=== PATIENT | female | born 1985 | race American Indian/Alaskan Native ===

== ENCOUNTER 2021-02-17 23:21 | Inpatient (IN) | payer BC, MEDICAID ==
[2021-02-17] MEDS ORDERED: LACTATED RINGERS 1,000 ML IV SCH (23:45)
[2021-02-17] MEDS ORDERED: OXYTOCIN DRIP 30 UNITS/500 ML BAG IV SCH (23:45)
[2021-02-17] MEDS ORDERED: OXYTOCIN DRIP 30,000 MILLIUNITS/500 ML BAG IV ONE (23:53)
[2021-02-17] MEDS ORDERED: LACTATED RINGERS 1,000 ML ONE (23:53)
[2021-02-17] MEDS ORDERED: ONDANSETRON 4 MG/2 ML INJ IV PRN (23:54)
[2021-02-17] MEDS ORDERED: CARBOPROST TROMETHAMINE 250 MCG/1 ML INJ IM PRN (23:54)
[2021-02-17] MEDS ORDERED: MINERAL OIL 30 ML ORAL LIQD PO PRN (23:54)
[2021-02-17] MEDS ORDERED: OXYTOCIN 10 UNIT/1 ML INJ IM PRN (23:54)
[2021-02-17] MEDS ORDERED: miSOPROStol 200 MCG TAB PR PRN (23:54)
[2021-02-17] MEDS ORDERED: NalbUPHINE 10 MG/1 ML INJ IV PRN (23:54)
[2021-02-17] MEDS ORDERED: LIDOCAINE (2%) 20 MG/1 ML VIAL 20 ML MDV INFILTRATI ONE (23:54)
[2021-02-17] MEDS ORDERED: TERBUTALINE 1 MG/1 ML INJ SUB-Q PRN (23:54)
[2021-02-17] MEDS ORDERED: ACETAMINOPHEN 325 MG TAB PO PRN (23:54)
[2021-02-17] MEDS ORDERED: LOPERAMIDE 2 MG CAP PO PRN (23:54)
[2021-02-17] MEDS ORDERED: ePHEDrine SULFATE 50 MG/1 ML INJ IV PRN (23:54)
[2021-02-17] MEDS ORDERED: METHYLERGONOVINE MALEATE 0.2 MG/ML VIAL IM PRN (23:54)
--- NOTE | 2021-02-17 23:57 | History and Physical Report ---
History of Present Illness Date of examination: 02/17/21 Chief complaint: abd pain since 1800 History of present illness: EDC Calculations by LMP: 05/27/2021 Past History : 3 Term Births: 1 Premature Births: 1 Living Children: 2 Para: 2 Mult. Births: 0 Prev : 1 Aborta: 0 Elect. Ab: 0 Spont. 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 of genital herpes: no Partner hx. of genital herpes: no Rash, Viral, or Febrile illness since last LMP? no Varicella/Chicken Pox Status: Previous Disease Genetic History ADVANCED MATERNAL AGE Congenital Heart Defect: Mom: no Dad: no Fannie Disease: Mom: no Dad: no Thalassemia Mom: no Dad: no Neural Tube Defect Mom: no Dad: no Down's Syndrome Mom: no Dad: no Jean Carlos-Sachs Mom: no Dad: no Sickle Cell Disease/Trait Mom: no Dad: no Hemophilia Mom: no Dad: no Muscular Dystrophy Mom: no Dad: no Cystic Fibrosis Mom: no Dad: no [place] Chorea Mom: no Dad: no Mental Retardation Mom: no Dad: no Fragile X Mom: no Dad: no Other Genetic/Chromosomal Disorder Mom: no Dad: no Child w/other defect Mom: no Dad: no Enviromental Exposures Xray Exposure: no Medication, drug, or alcohol use since LMP: no Chemical/Other Exposure: no Exposure to Cat Liter: no Hx of Parvovirus (Fifth Disease): no Occupational Exposure to Children: none Active Medications (reviewed today): None Current Allergies (reviewed today): No known allergies Past History Past Medical History: other (see HPI) Past Surgical History: other (see HPI) 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 (see HPI) Family/Genetic History: other (see HPI) - Obstetrical History Expected Date of Delivery: 05/27/21 Actual Gestation: 26 Week(s) 0 Day(s) : 3 Para: 2 Hx # Term Pregnancies: 1 Number of Pregnancies: 1 Spontaneous Abortions: 0 Induced : 0 Number of Living Children: 1 Medications and Allergies Allergies Allergy/AdvReac Type Severity Reaction Status Date / Time No Known Allergies Allergy Unverified 02/17/21 23:36 Review of Systems All systems: negative - Physical Exam Cardiovascular: Regular rate Lungs: Positive: Normal air movement Abdomen: Positive: normal appearance, soft Genitourinary (Female): Positive: normal external genitalia Vulva: both: normal Vagina: Positive: normal moisture (SROM - mec) Extremities: Positive: normal - Obstetrical Uterine Contraction Monitor Mode: External Cervical Dilatation: 10 (SROM MEC) Cervical Effacement Percentage: 100 station: +2 Results Result Diagrams: 02/18/21 00:00 All other labs normal. Assessment and Plan 35y/o presented with abd pain since 1800 today worsening around 2200. Pt drove self to hospital. Upon arrival - SROM MEC fluid. pt 10/100/+2. prev c/s. NICU notified, anticipate delivery. Dr. Parada consulted ad aware of pt's status. - Patient Problems (1) 26 weeks gestation of Current Visit: Yes Status: Acute (2) labor in second trimester with delivery in second trimester Current Visit: Yes Status: Acute Qualifiers: Fetus number: single or unspecified fetus Qualified Code(s): O60.12X0 - labor second trimester with delivery second trimester, not a pplicable or unspecified
--- NOTE | 2021-02-18 00:19 | Procedure Note ---
OB Delivery Note - Delivery Date of Delivery: 02/18/21 Ticket Collector: EZ ARGUETA Estimated blood loss: 200cc - Vaginal Delivery presentation: vertex Intrapartum events: labor-<37 weeks, meconium, abruption Delivery induction: none Delivery monitor: external FHT Route of delivery: Delivery placenta: spontaneous Delivery cord: 3 umbilical vessels Episiotomy: none Delivery laceration: none Anesthesia: none Delivery comments: pt arrived complete, once NICU was set up and IV established, pt pushed through 2 ctx. once was born, waited approx 45 seconds to clamp and cut cord as per NICU. Once cord stopped pulsating, cord clamped and cut, [facility]. Placenta delivered immediately with clots suggesting abruption. Pit in IVF. no lacerations to repair. fundus firm, lochia scant. All counts correct. - A Gender: Female
[2021-02-18 00:26] LABS: Hematocrit 35.7 % (30.3-42.9); Hemoglobin 11.9 gm/dl (10.1-14.3); Mean Corpuscular HGB Conc 33 % (30-34); Mean Corpuscular Volume 92 fl (79-97); Platelet Count 227 K/mm3 (140-440); Red Cell Distribution Width 14.7 % (13.2-15.2)
[2021-02-18] MEDS ORDERED: AMPICILLIN/NS 2 GM/100 ML 2 GM/100 ML BAG IV ONE (01:00)
[2021-02-18] MEDS ORDERED: WITCH HAZEL/ GLYCERIN PAD TP PRN (03:24)
[2021-02-18] MEDS ORDERED: PROMETHAZINE 25 MG TAB PO PRN (03:24)
[2021-02-18] MEDS ORDERED: diphenhydrAMINE 25 MG CAP PO PRN (03:24)
[2021-02-18] MEDS ORDERED: MAGNESIUM HYDROXIDE (MOM) ORAL LIQD UDC PO PRN (03:24)
[2021-02-18] MEDS ORDERED: LANOLIN/ZINC/DIMETHICONE (LANSINOH) 7 GM TP PRN (03:24)
[2021-02-18] MEDS: IBUPROFEN 800 MG TAB PO SCH ×3 (04:59→18:30)
--- NOTE | 2021-02-18 08:08 | Progress Note ---
Assessment and Plan Pt standing at bedside crying s/p phone call with NICU. Pt reports fears concerning . Pt comforted and counseling provided. POC and precautions discussed. All questions and concerns addressed. - Patient Problems (1) , delivered Current Visit: Yes Status: Acute Subjective - Subjective Date of service: 02/18/21 Principal diagnosis: PP, of infant Patient reports: appetite normal, voiding normally, pain well controlled, ambulating normally, no dizzy ambulation, no nauseated : in NICU Objective - Vital Signs Latest vital signs: Vital Signs Temp Pulse Resp BP Pulse Ox 02/18/21 07:46 98.0 F 79 18 109/72 100 02/18/21 05:53 18 02/18/21 04:59 18 02/18/21 03:09 98.5 F 90 18 126/77 99 02/18/21 02:33 83 L 02/18/21 02:32 75 81 L 02/18/21 02:28 80 91 02/18/21 02:25 85 96 02/18/21 02:20 86 97 02/18/21 02:18 82 123/74 02/18/21 02:15 89 98 02/18/21 02:10 81 97 02/18/21 02:05 86 96 02/18/21 02:03 85 121/69 02/18/21 02:00 85 96 02/18/21 01:55 89 97 02/18/21 01:50 87 97 02/18/21 01:48 89 120/68 02/18/21 01:45 87 98 02/18/21 01:40 89 97 02/18/21 01:35 96 H 98 02/18/21 01:33 86 132/68 02/18/21 01:30 92 H 97 02/18/21 01:25 93 H 97 02/18/21 01:20 93 H 97 02/18/21 01:18 92 H 139/68 94 02/18/21 01:15 95 H 97 02/18/21 01:10 94 H 97 02/18/21 01:05 94 H 97 02/18/21 01:03 92 H 115/79 94 02/18/21 01:00 92 H 98 02/18/21 00:55 94 H 98 02/18/21 00:50 97 H 96 02/18/21 00:45 95 H 98 02/18/21 00:40 105 H 96 02/18/21 00:38 93 H 94 02/18/21 00:37 98.1 F 18 02/18/21 00:35 97 H 97 02/18/21 00:33 93 H 125/72 02/18/21 00:30 97 H 98 02/18/21 00:25 108 H 97 02/18/21 00:21 104 H 131/76 02/18/21 00:20 106 H 99 02/18/21 00:15 117 H 99 02/18/21 00:10 103 H 98 02/18/21 00:05 116 H 100 02/18/21 00:00 116 H 99 Intake and Output 02/17/21 02/18/21 02/18/21 23:59 07:59 15:59 Intake Total 360 Output Total 1400 Balance -1040 Intake: Oral 360 Output: Urine 1400 Void 1400 Other: Total, Intake Amount 240 Total, Output Amount 800 # Voids Void 2 Weight 179 lb Estimated Blood Loss 200 - Exam Breasts: Present: normal Cardiovascular: Present: Regular rate Lungs: Present: Normal air movement Abdomen: Present: normal appearance, soft Vulva: both: normal Uterus: Present: normal, firm Extremities: Present: normal Comments: scant vaginal bleeding - Labs Labs: Abnormal lab results 02/18/21 Range/Units 00:00 WBC 14.5 H (4.5-11.0) K/mm3
[2021-02-18] MEDS: PRENATAL VIT27-FE FUMARATE-FOLIC ACID VIT TAB PO SCH (12:21)
[2021-02-18 16:19] LABS: Hematocrit 32.3 % (30.3-42.9); Hemoglobin 10.6 gm/dl (10.1-14.3)
[2021-02-19] MEDS: IBUPROFEN 800 MG TAB PO SCH ×3 (00:46→12:30)
[2021-02-19] MEDS: PRENATAL VIT27-FE FUMARATE-FOLIC ACID VIT TAB PO SCH (07:59)
--- NOTE | 2021-02-19 11:18 | Discharge Summary ---
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] Routine Reason For Exam: assistance with , SNS Primary care physician: NISHA FINNEY Hospitalization Reason for admission: labor Condition: Good Pertinent studies: post delivery H&H 10.6/32.3 Procedures: Hospital course: delivery and course complicated by prematurity Disposition: DC-01 TO HOME OR SELFCARE Final Discharge Diagnosis (Prints w/discharge instructions): vaginal after c/s @ 26 weeks Time spent for discharge: 15 - Discharge Diagnoses (1) , delivered Status: Acute Core Measure Documentation - Palliative Care Palliative Care/ Comfort Measures: Not Applicable - Core Measures Any of the following diagnoses?: none Exam - Constitutional Vitals: Temp Pulse Resp BP Pulse Ox 99.2 F 78 20 116/80 100 02/19/21 07:48 02/19/21 07:48 02/19/21 07:48 02/19/21 07:48 02/18/21 23:24 General appearance: Present: no acute distress, well-nourished - EENT Eyes: Present: PERRL ENT: hearing intact, clear oral mucosa - Neck Neck: Present: supple, normal ROM - Respiratory Respiratory effort: normal Respiratory: bilateral: CTA - Cardiovascular Heart Sounds: Present: S1 & S2. Absent: rub, click - Extremities Extremities: pulses symmetrical, No edema Peripheral Pulses: within normal limits - Abdominal General gastrointestinal: Present: soft, non-tender, non-distended, normal bowel sounds Female genitourinary: Present: normal - Integumentary Integumentary: Present: clear, warm, dry - Musculoskeletal Musculoskeletal: gait normal, strength equal bilaterally - Psychiatric Psychiatric: appropriate mood/affect, intact judgment & insight - Neurologic Neurologic: CNII-XII intact, moves all extremities Plan Activity: no restrictions Diet: regular Follow up with: NISHA FINNEY MD [Primary Care Provider] - 6 Weeks (Congratulations!! Please call [phone] to schedule your visit in 4 weeks. Call for any questions or concerns. )
[2021-02-19 13:07] VITALS: BP 131/86
== END 2021-02-19 15:00 | disposition home or self-care (01) | DRG 805 ==
LOC: TRG 23:21 → APU 23:30 → LD 23:54 → TRG 23:54 → OB 02-18 02:51
PROVIDERS: ADMIT Obstetrics & Gynecology; ATTEND Obstetrics & Gynecology
PROC: 10E0XZZ Delivery of Products of Conception, External Approach (ICD-10-PCS; principal; 2021-02-18)
DX: O60.12X1 Preterm labor second trimester with preterm delivery second trimester, fetus 1 (principal); O45.92 Premature separation of placenta, unspecified, second trimester; Z37.0 Single live birth; Z3A.26 26 weeks gestation of pregnancy; O34.211 Maternal care for low transverse scar from previous cesarean delivery; O77.0 Labor and delivery complicated by meconium in amniotic fluid; Z20.822 Contact with and (suspected) exposure to COVID-19
CPT/HCPCS: 36415; 85014; 85018; 85027; 86592; 86850; 86900; 86901; 88305; 99211; G0378; G0463; U0003